=== PATIENT | male | born 1995 | race Caucasian/White ===

== ENCOUNTER 2021-11-05 21:03 | Emergency (ER) | payer MEDICAID ==
[~2021-11-05] VITALS: Ht 172.7 cm; Wt 75.0 kg
[2021-11-05 21:16] VITALS: BP 122/68
[2021-11-05] MEDS ORDERED: METH-653 MT (21:40)
[2021-11-05] MEDS ORDERED: KETOROLAC 60MG/2ML VIAL IM ONE (21:45)
[2021-11-05] MEDS ORDERED: METHOCARBAMOL 500MG TABLET PO ONE (21:45)
== END 2021-11-05 22:33 | disposition home or self-care (01) ==
LOC: ER 21:03
DX: S16.1XXA Strain of muscle, fascia and tendon at neck level, initial encounter (principal); V49.49XA Driver injured in collision with other motor vehicles in traffic accident, initial encounter; Y93.89 Activity, other specified; Y92.89 Other specified places as the place of occurrence of the external cause; Y99.8 Other external cause status
CPT/HCPCS: 96372; 99283; J1885

== ENCOUNTER 2021-11-16 10:38 | Emergency (ER) | payer MEDICAID ==
[~2021-11-16] VITALS: Ht 172.7 cm; Wt 75.0 kg
[~2021-11-16 10:38] MED LIST: METH-653 MT
[2021-11-16 10:50] VITALS: BP 174/108
[2021-11-16] MEDS ORDERED: ACETAMINOPHEN 325MG TABLET PO NR (11:00)
[2021-11-16] MEDS ORDERED: TETANUS, DIPHTHERIA, PERTUSSIS VAC/PF 0.5ML (>10YR OLD) IM ONE (11:00)
== END 2021-11-16 12:27 | disposition home or self-care (01) ==
LOC: ER 10:38
DX: S61.217A Laceration without foreign body of left little finger without damage to nail, initial encounter (principal); W26.8XXA Contact with other sharp object(s), not elsewhere classified, initial encounter; Y93.89 Activity, other specified; Y92.89 Other specified places as the place of occurrence of the external cause; Y99.8 Other external cause status; Z90.49 Acquired absence of other specified parts of digestive tract
CPT/HCPCS: 73130; 99283

== ENCOUNTER 2023-01-21 06:00 | Emergency (ER) | payer MEDICAID ==
[~2023-01-21] VITALS: Ht 172.7 cm; Wt 77.0 kg
[2023-01-21 06:02] VITALS: BP 123/63
[2023-01-21] MEDS ORDERED: KETOROLAC 60MG/2ML VIAL IM STA (06:22)
[2023-01-21] MEDS ORDERED: OXYCODONE HCL/ACETAMINOPHEN 5/325MG TABLET PO ONE (07:00)
[2023-01-21] MEDS ORDERED: IBUP-2028 PO (08:34)
[2023-01-21] MEDS ORDERED: T3 PO (08:34)
== END 2023-01-21 09:52 | disposition home or self-care (01) ==
LOC: ER 06:00
DX: M25.561 Pain in right knee (principal); Z87.828 Personal history of other (healed) physical injury and trauma; Z90.49 Acquired absence of other specified parts of digestive tract
CPT/HCPCS: 73562; 96372; 99283; J1885; L1830; Z7610